=== PATIENT | female | born 1980 | race Caucasian/White ===

== ENCOUNTER 2020-12-04 11:32 | Day surgery (SDC) | payer BC, SELFPAY ==
[~2020-12-04] VITALS: Ht 170.2 cm; Wt 68.0 kg
[~2020-12-04 11:32] MED LIST: MULT-634 PO
[2020-12-04 13:43] LABS: BASOPHILS # (AUTO) 0.1 K/uL (0.0-0.2); BASOPHILS % (AUTO) 0.6 % (0.0-2.0); EOSINOPHILS % (AUTO) 0.4 % (0.0-4.0); HEMATOCRIT 40.8 % (36-48); HEMOGLOBIN 14.1 g/dL (12.0-16.0); LYMPHOCYTES # (AUTO) 2.1 K/uL (1.0-5.5); LYMPHOCYTES % (AUTO) 21.9 % (20.5-51.5); MEAN CORPUSCULAR HEMOGLOBIN 30 pg (27-31); MEAN CORPUSCULAR HGB CONC 35 % (32-36); MEAN CORPUSCULAR VOLUME 87 fL (79.0-98.0); MONOCYTES # (AUTO) 0.7 K/uL (0.0-1.0); MONOCYTES % (AUTO) 7.3 % (1.7-9.3); NEUTROPHILS # (AUTO) 6.8 K/uL (1.8-7.7); NEUTROPHILS % (AUTO) 69.8 % (40.0-70.0); PLATELET COUNT (AUTO) 178 K/uL (130-430); RED BLOOD CELL COUNT(AUTO) 4.71 MIL/uL (4.2-6.2); WHITE BLOOD COUNT (AUTO) 9.7 K/uL (4.8-10.8)
[2020-12-04] MEDS ORDERED: HYDROcodone/ACETAMIN 5-325 MG TAB (NORCO/ VICODIN) PO PRN (14:15)
[2020-12-04] MEDS ORDERED: ONDANSETRON HCL 4 MG/2 ML VIAL IVP PRN ×2 (14:15→14:30)
[2020-12-04] MEDS ORDERED: OXYCODONE/ACETAMINOPHEN 5-325 TABLET PO PRN ×2 (14:15)
[2020-12-04] MEDS ORDERED: LR 1,000 ML IV.SOLN IV ONE (14:30)
[2020-12-04] MEDS ORDERED: ONDANSETRON HCL 4 MG/2 ML VIAL ONE (14:30)
[2020-12-04] MEDS ORDERED: HYDROmorphone 1 MG/ML INJ. CARTRIDGE IVP PRN ×2 (14:30)
[2020-12-04] MEDS ORDERED: NS IRRIG SOLN 1000 ML IR ONE (14:30)
[2020-12-04] MEDS ORDERED: METOCLOPRAMIDE HCL 10 MG/2 ML VIAL ONE (14:30)
[2020-12-04] MEDS ORDERED: PROPOFOL 200MG/ 20ML VIAL (DIPRIVAN) IV ONE (14:30)
[2020-12-04] MEDS ORDERED: ePHEDrine sulfate 50 MG/ML VIAL ONE (14:30)
[2020-12-04] MEDS ORDERED: SEVOFLURANE 15 MIN GAS INH ONE (14:30)
[2020-12-04] MEDS ORDERED: DEXAMETHASONE SOD PHOSPHATE 4 MG/ML VIAL ONE (14:30)
[2020-12-04] MEDS ORDERED: OXYTOCIN/0.9 % SODIUM CHLORIDE 20 UNITS/1,000 ML BAG IV ONE (14:30)
[2020-12-04] MEDS ORDERED: fentaNYL CITRATE/PF 100 MCG/2 ML AMP ONE (14:30)
[2020-12-04] MEDS ORDERED: OXYTOCIN 20 UNIT in LR 1,000 ML IV ONE (14:45)
[2020-12-04] MEDS ORDERED: HYDROcodone/ACETAMIN 5-325 MG TAB (NORCO/ VICODIN) ONE (16:15)
[2020-12-04 17:27] VITALS: BP_SYST 107
== END 2020-12-04 17:20 | disposition home or self-care (01) ==
LOC: SDS 11:32
PROVIDERS: ATTEND Specialist
DX: O02.1 Missed abortion (principal); Z3A.12 12 weeks gestation of pregnancy
CPT/HCPCS: 36415; 59820; 85025; 87426; 88305; J1100; J2405; J2590 ×2; J2704; J2765; J3010; J7120